=== PATIENT | female | born 1940 | race Caucasian/White ===

== ENCOUNTER 2017-01-12 11:41 | Outpatient (CLI) ==
[2014-03-12 16:14] VITALS: BMI 21.9
[2017-01-12 13:38] LABS: HEMATOCRIT 41.9 % (37.0-47.0); HEMOGLOBIN 13.7 g/dl (12.0-16.0); MEAN CORPUSCULAR HEMOGLOBIN 31.7 pg (27.0-31.0); MEAN CORPUSCULAR HGB CONC 32.7 (31.8-35.4); RED BLOOD COUNT 4.32 10^6/ul (4.20-5.40); WHITE BLOOD COUNT 6.44 K/ul (4.6-10.2)
[2017-01-12 14:32] LABS: ALBUMIN 4.1 g/dL (3.4-5.0); ALBUMIN/GLOBULIN RATIO 1.64; ANION GAP 11.9; BILIRUBIN,TOTAL 0.61 mg/dL (0.00-1.20); BUN/CREATININE RATIO 11.94; CALCIUM 9.3 mg/dL (8.2-10.2); CREATININE 0.67 mg/dL (0.60-1.30); POTASSIUM 3.9 mmol/L (3.5-5.10); TOTAL PROTEIN 6.6 g/dL (5.8-8.1)
== END 2017-01-12 11:42 | disposition home or self-care (01) ==
LOC: LAB 11:41
PROVIDERS: ATTEND General Practice
DX: M33.90 Dermatopolymyositis, unspecified, organ involvement unspecified (principal); I10 Essential (primary) hypertension; E03.9 Hypothyroidism, unspecified; I49.9 Cardiac arrhythmia, unspecified
CPT/HCPCS: 36415; 80053; 85027

== ENCOUNTER 2017-02-08 11:35 | Outpatient (CLI) ==
[2014-03-12 16:14] VITALS: BMI 21.9
[2017-02-08 12:13] LABS: HEMATOCRIT 38.4 % (37.0-47.0); HEMOGLOBIN 12.7 g/dl (12.0-16.0); MEAN CORPUSCULAR HEMOGLOBIN 31.4 pg (27.0-31.0); MEAN CORPUSCULAR HGB CONC 33.1 (31.8-35.4); MEAN CORPUSCULAR VOLUME 94.8 fl (81.0-99.0); PLATELET COUNT 251 10^3/uL (140-440); RED BLOOD COUNT 4.05 10^6/ul (4.20-5.40); WHITE BLOOD COUNT 6.33 K/ul (4.6-10.2)
[2017-02-08 12:53] LABS: ERYTHROCYTE SEDIMENTATION RATE 11 mm/hr (0-20); ESR INTERNAL QC INTERNAL QC VALID
[2017-02-08 13:02] LABS: ALBUMIN 3.9 g/dL (3.4-5.0); ALBUMIN/GLOBULIN RATIO 1.56; ANION GAP 10.5; BILIRUBIN,TOTAL 0.58 mg/dL (0.00-1.20); BUN/CREATININE RATIO 12.85; CALCIUM 9.2 mg/dL (8.2-10.2); CREATININE 0.7 mg/dL (0.60-1.30); POTASSIUM 3.5 mmol/L (3.5-5.10); TOTAL PROTEIN 6.4 g/dL (5.8-8.1)
[2017-02-08 13:12] LABS: CREATINE KINASE MB 5.5 ng/ml (0.0-3.6)
== END 2017-02-08 11:36 | disposition home or self-care (01) ==
LOC: LAB 11:35
PROVIDERS: ATTEND Internal Medicine Rheumatology
DX: M33.19 Other dermatomyositis with other organ involvement (principal)
CPT/HCPCS: 36415; 80053; 82550; 82553; 85027; 85651

== ENCOUNTER 2017-05-11 08:28 | Outpatient (CLI) ==
[2014-03-12 16:14] VITALS: BMI 21.9
[2017-05-11 12:37] LABS: BASOPHILS % (AUTO) 0.4 % (0.0-3.0); EOSINOPHILS # (AUTO) 0.1 K/ul (0.0-0.7); EOSINOPHILS % (AUTO) 2.1 % (0.0-7.0); HEMATOCRIT 41.7 % (37.0-47.0); HEMOGLOBIN 13.7 g/dl (12.0-16.0); IMMATURE GRANULOCYTE % (AUTO) 0.5 % (0.0-5.0); LYMPHOCYTES # (AUTO) 0.8 K/uL (0.60-3.4); LYMPHOCYTES % (AUTO) 13.7 (10.0-50.0); MEAN CORPUSCULAR HEMOGLOBIN 32.1 pg (27.0-31.0); MEAN CORPUSCULAR HGB CONC 32.9 (31.8-35.4); MEAN CORPUSCULAR VOLUME 97.7 fl (81.0-99.0); MONOCYTES # (AUTO) 0.6 K/uL (0.4-2.0); NEUTROPHILS # (AUTO) 4.2 K/ul (2.0-6.9); NEUTROPHILS % (AUTO) 73.3; PLATELET COUNT 265 10^3/uL (140-440); RED BLOOD COUNT 4.27 10^6/ul (4.20-5.40); WHITE BLOOD COUNT 5.69 K/ul (4.6-10.2)
[2017-05-11 12:41] LABS: BILIRUBIN,URINE Negative (NEGATIVE); KETONES,URINE Negative (NEGATIVE); LEUKOCYTE ESTERASE ,URINE 2+ (NEGATIVE); NITRITE,URINE Negative (NEGATIVE); PROTEIN,URINE Negative (NEGATIVE); URINE, BLOOD Trace-intact (NEGATIVE)
[2017-05-11 12:49] LABS: ADD URINE MICROSCOPIC YES; ALBUMIN 3.8 g/dL (3.4-5.0); ALBUMIN/GLOBULIN RATIO 1.46; BILIRUBIN,TOTAL 0.72 mg/dL (0.00-1.20); CHOL/HDL RATIO 3.1 (4.5-5.5); CREATININE 0.75 mg/dL (0.60-1.30); TOTAL PROTEIN 6.4 g/dL (5.8-8.1)
== END 2017-05-11 08:29 | disposition home or self-care (01) ==
LOC: LAB 08:28
PROVIDERS: ATTEND General Practice
DX: E03.9 Hypothyroidism, unspecified (principal); I10 Essential (primary) hypertension; I47.1 Supraventricular tachycardia; M33.90 Dermatopolymyositis, unspecified, organ involvement unspecified; Z79.899 Other long term (current) drug therapy
CPT/HCPCS: 36415; 80053; 80061; 81001; 85025; 87086

== ENCOUNTER 2017-06-19 11:12 | Outpatient (CLI) ==
[2014-03-12 16:14] VITALS: BMI 21.9
[2017-06-19 11:33] LABS: HEMATOCRIT 39.1 % (37.0-47.0); HEMOGLOBIN 13.2 g/dl (12.0-16.0); MEAN CORPUSCULAR HEMOGLOBIN 32.4 pg (27.0-31.0); MEAN CORPUSCULAR HGB CONC 33.8 (31.8-35.4); MEAN CORPUSCULAR VOLUME 95.8 fl (81.0-99.0); PLATELET COUNT 235 10^3/uL (140-440); RED BLOOD COUNT 4.08 10^6/ul (4.20-5.40); WHITE BLOOD COUNT 5.81 K/ul (4.6-10.2)
[2017-06-19 12:10] LABS: ALBUMIN 3.9 g/dL (3.4-5.0); ALBUMIN/GLOBULIN RATIO 1.5; ANION GAP 12.9; BILIRUBIN,TOTAL 0.55 mg/dL (0.00-1.20); BUN/CREATININE RATIO 11.11; CALCIUM 9.5 mg/dL (8.2-10.2); CREATININE 0.72 mg/dL (0.60-1.30); POTASSIUM 3.9 mmol/L (3.5-5.10); TOTAL PROTEIN 6.5 g/dL (5.8-8.1)
[2017-06-19 12:11] LABS: ERYTHROCYTE SEDIMENTATION RATE 8 mm/hr (0-20); ESR INTERNAL QC INTERNAL QC VALID
[2017-06-19 12:22] LABS: CREATINE KINASE MB 2.4 ng/ml (0.0-3.6)
== END 2017-06-19 11:13 | disposition home or self-care (01) ==
LOC: LAB 11:12
PROVIDERS: ATTEND Internal Medicine Rheumatology
DX: M33.19 Other dermatomyositis with other organ involvement (principal)
CPT/HCPCS: 36415; 80053; 82085; 82550; 82553; 85027; 85651

== ENCOUNTER 2017-10-11 12:08 | Outpatient (CLI) ==
[2014-03-12 16:14] VITALS: BMI 21.9
[2017-10-11 12:49] LABS: HEMATOCRIT 38.6 % (37.0-47.0); HEMOGLOBIN 12.7 g/dl (12.0-16.0); MEAN CORPUSCULAR HEMOGLOBIN 31.9 pg (27.0-31.0); MEAN CORPUSCULAR HGB CONC 32.9 (31.8-35.4); PLATELET COUNT 244 10^3/uL (140-440); RED BLOOD COUNT 3.98 10^6/ul (4.20-5.40); WHITE BLOOD COUNT 6.38 K/ul (4.6-10.2)
[2017-10-11 13:18] LABS: ALBUMIN 3.8 g/dL (3.4-5.0); ALBUMIN/GLOBULIN RATIO 1.41; ANION GAP 12.2; BILIRUBIN,TOTAL 0.5 mg/dL (0.00-1.20); BUN/CREATININE RATIO 13.43; CALCIUM 9.2 mg/dL (8.2-10.2); CREATININE 0.67 mg/dL (0.60-1.30); POTASSIUM 3.2 mmol/L (3.5-5.10); TOTAL PROTEIN 6.5 g/dL (5.8-8.1)
[2017-10-11 14:17] LABS: ERYTHROCYTE SEDIMENTATION RATE 6 mm/hr (0-20); ESR INTERNAL QC INTERNAL QC VALID
== END 2017-10-11 12:09 | disposition home or self-care (01) ==
LOC: LAB 12:08
PROVIDERS: ATTEND Internal Medicine Rheumatology
DX: M89.9 Disorder of bone, unspecified (principal); M33.19 Other dermatomyositis with other organ involvement
CPT/HCPCS: 36415; 80053; 82306; 82550; 82553; 85027; 85651

== ENCOUNTER 2017-11-13 12:04 | Outpatient (CLI) ==
[2014-03-12 16:14] VITALS: BMI 21.9
== END 2017-11-13 12:05 | disposition home or self-care (01) ==
LOC: LAB 12:04
PROVIDERS: ATTEND General Practice
DX: E03.9 Hypothyroidism, unspecified (principal); I10 Essential (primary) hypertension; I47.1 Supraventricular tachycardia; M33.90 Dermatopolymyositis, unspecified, organ involvement unspecified; Z79.899 Other long term (current) drug therapy
CPT/HCPCS: 36415; 80053; 80061; 81001; 84443; 85025

== ENCOUNTER 2018-02-16 12:22 | Outpatient (CLI) ==
[2014-03-12 16:14] VITALS: BMI 21.9
== END 2018-02-16 12:23 | disposition home or self-care (01) ==
LOC: LAB 12:22
PROVIDERS: ATTEND Internal Medicine Rheumatology
DX: M33.19 Other dermatomyositis with other organ involvement (principal)
CPT/HCPCS: 36415; 80053; 82550; 82553; 85027; 85651

== ENCOUNTER 2018-03-08 13:00 | Outpatient (CLI) ==
[2014-03-12 16:14] VITALS: BMI 21.9
== END 2018-03-08 13:01 | disposition home or self-care (01) ==
LOC: FCC-LAB 13:00
PROVIDERS: ATTEND General Practice
DX: E03.9 Hypothyroidism, unspecified (principal); I47.1 Supraventricular tachycardia; I10 Essential (primary) hypertension; Z79.899 Other long term (current) drug therapy
CPT/HCPCS: 36415; 80053; 80061; 81001; 85025

== ENCOUNTER 2018-07-09 10:53 | Outpatient (CLI) ==
[2014-03-12 16:14] VITALS: BMI 21.9
== END 2018-07-09 10:54 | disposition home or self-care (01) ==
LOC: FCC-LAB 10:53
PROVIDERS: ATTEND General Practice
DX: E03.9 Hypothyroidism, unspecified (principal); I10 Essential (primary) hypertension; I47.1 Supraventricular tachycardia; E55.9 Vitamin D deficiency, unspecified; Z79.899 Other long term (current) drug therapy
CPT/HCPCS: 36415; 80053; 80061; 81001; 85025

== ENCOUNTER 2018-07-24 11:26 | Outpatient (CLI) ==
[2014-03-12 16:14] VITALS: BMI 21.9
== END 2018-07-24 11:27 | disposition home or self-care (01) ==
LOC: LAB 11:26
PROVIDERS: ATTEND Internal Medicine Rheumatology
DX: M33.19 Other dermatomyositis with other organ involvement (principal)
CPT/HCPCS: 36415; 80053; 82550; 82553; 85027; 85651

== ENCOUNTER 2018-11-01 08:56 | Outpatient (CLI) ==
[2014-03-12 16:14] VITALS: BMI 21.9
== END 2018-11-01 08:57 | disposition home or self-care (01) ==
LOC: RHC-LAB 08:56
PROVIDERS: ATTEND General Practice
DX: E55.9 Vitamin D deficiency, unspecified (principal); I10 Essential (primary) hypertension; E03.9 Hypothyroidism, unspecified; I47.1 Supraventricular tachycardia; Z79.899 Other long term (current) drug therapy
CPT/HCPCS: 36415; 80053; 80061; 81001; 84443; 85025; 87086

== ENCOUNTER 2018-11-20 18:51 | Emergency (ER) ==
[2018-11-20 18:56] VITALS: BP 185/85; TEMP 98.7; BMI 25.7
--- NOTE | 2018-11-20 19:32 | CT ---
EXAM: CT sinuses/facial bones without contrast HISTORY: Nasal deformity post fall COMPARISON: No CT head 03/14/2014 TECHNIQUE: Serial axial images of the facial bones/sinuses were obtained without IV contrast. These were viewed in coronal, sagittal and axial planes. FINDINGS: The nasal bones demonstrate cortical irregularity and angulation most pronounced on the ri ght. The nasal spine is intact. The maxillary sinus and orbital borders are otherwise intact. The mandible is unremarkable. 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 Soft tissues are unr emarkable. The orbital globes and retrobulbar structures are normal. IMPRESSION: 1. Mild cortical irregularity and angulation of the right nasal bones suggestive of fracture. 2. No additional facial bone fracture is identified.
--- NOTE | 2018-11-20 19:33 | ED.PDOC ---
General ED Provider: Dr. REGGIE TAYLOR-ER Chief Complaint: Fall Stated Complaint: i felll and hurt my nose Time Seen by Physician: 19:00 Mode of Arrival: Walk-In Information Source: Patient, Family Exam Limitations: No limitations [facility] T[facility] Documentation Reviewed and Agree: Yes Does patient meet sepsis criteria?: No System Inflammatory Response Syndrome: Not Applicable Sepsis Protocol: For patient's 13 years and over: Temp is 96.8 and below OR 101 and greater Pulse >90 BPM Resp >20/minute Acutely Altered Mental Status Are patient's symptoms suggestive of a new infection, such as: -Pneumonia -Skin, Soft Tissue -Endocarditis -UTI -Bone, Joint Infection -Implantable Device -Acute Abdominal Infection -Wound Infection -Meningitis -Blood Stream Catheter Infection -Unknown Trauma/Injury Complaint Exam - Facial Injury Complaint/Exam Location of Pain: Reports: Nose Mechanism of Injury: Reports: Trauma Onset/Duration: 30 min Symptoms Are: Still present Onset of Pain: Reports: Immediate Initial Severity: Mild Current Severity: Mild Location: Reports: Discrete Character: Reports: Dull, Aching Aggravating: Reports: Movement Associated Signs and Symptoms: Reports: Swelling, Bruising Related Surgical History: Reports: None Facial Findings: Present: Swelling, Ecchymosis, Abrasion Differential Diagnoses: Contusion, Fracture Review of Systems - Review Of Systems Constitutional: Reports: No symptoms Eyes: Reports: No symptoms Ears, Nose, Mouth, Throat: Reports: No symptoms Respiratory: Reports: No symptoms Cardiac: Reports: No symptoms GI: Reports: No symptoms : Reports: No symptoms Musculoskeletal: Reports: No symptoms Skin: Reports: No symptoms Neurological: Reports: No symptoms Endocrine: Reports: No symptoms Hematologic/Lymphatic: Reports: No symptoms All Other Systems: Reviewed and Negative Past Medical History - Past Medical History Previously Healthy: Yes Endocrine: Reports: Unknown Cardiovascular: Reports: Unknown Respiratory: Reports: Unknown Hematological: Reports: Unknown Gastrointestinal: Reports: Unknown Genitourinary: Reports: Unknown Neuro/Psych: Reports: Unknown Musculoskeletal: Reports: Unknown Cancer: Reports: Unknown Last Menstrual Period: none - Surgical History General Surgical History: Reports: Unknown - Family History Family History: Reports: Unknown - Social History Smoking Status: Never smoker Hx Substance Use: No Alcohol Screening: None - Immunizations Tetanus Shot up to Date: Yes Physical Exam - Physical Exam Appearance: Well-appearing, No pain distress, Well-nourished Eyes: KODY, EOMI, Conjunctiva clear ENT: Ears normal, Nose normal (notd abrasion of nasal bridge), Oropharynx normal Neck: Supple Respiratory: Airway patent, Breath sounds clear, Breath sounds equal, Respirations nonlabored Cardiovascular: RRR, Pulses normal, No rub, No murmur GI/: Soft, Nontender, No masses, Bowel sounds normal, No Organomegaly Musculoskeletal: Normal strength, ROM intact, No edema, No calf tenderness Skin: Warm, Dry, Normal color Neurological: Sensation intact, Motor intact, Reflexes intact, Cranial nerves intact, Alert, Oriented Psychiatric: Affect appropriate, Mood appropriate Interpretation - Radiology Interpretation Radiology Interpretation By: Radiologist Radiology Results: Positive Exam Interpreted: CT Scan Critical Care Note - Critical Care Note Total Time (mins): 0 Course - Course Orders, Labs, Meds: Orders Category Date Time Status CT MAXILLOFACIAL W/O CONTRAST Stat RADS 11/20/18 18:59 Completed Vital Signs: Temp Pulse Resp BP Pulse Ox 11/20/18 18:51 98.7 F 84 16 185/85 H 97 Departure - Departure Time of Disposition: 19:34 Disposition: HOME SELF-CARE Discharge Problem: Nasal bone fracture Qualifiers: Encounter type: initial encounter Fracture type: closed Qualified Code(s): S02.2XXA - Fracture of nasal bones, initial encounter for closed fracture Instructions: Nasal Fracture (ED) Condition: Good Pt referred to PMD for follow-up: Yes IPMP verified?: No Additional Instructions: ice...tylenol for pain---contact er tomorrow for referral to DR gomez Allergies/Adverse Reactions: Allergies cephalexin monohydrate [From Keflex] Adverse Reaction (Verified 11/20/18 18:56) Home Medications: Ambulatory Orders Methotrexate Sodium [Methotrexate] 2.5 mg PO 8 tabs per day wkly 08/11/15 Folic Acid 1 mg PO DAILY #1 01/20/17 Prednisone 10 mg PO DAILY #5 07/20/17 Disposition Discussed With: Patient, Family
== END 2018-11-20 19:43 | disposition home or self-care (01) ==
LOC: ED 18:51
DX: S02.2XXA Fracture of nasal bones, initial encounter for closed fracture (principal); W19.XXXA Unspecified fall, initial encounter
CPT/HCPCS: 99282; 99283

== ENCOUNTER 2018-11-27 09:40 | Outpatient (CLI) | END 2018-11-27 09:41 | disposition home or self-care (01) | LOC: LAB 09:40 | PROVIDERS: ATTEND Internal Medicine Rheumatology | DX: M33.19 Other dermatomyositis with other organ involvement (principal) | CPT/HCPCS: 36415; 80053; 82550; 82553; 85027; 85651 ==

== ENCOUNTER 2019-06-27 10:00 | Outpatient (CLI) | END 2019-06-27 10:01 | disposition home or self-care (01) | LOC: LAB 10:00 | PROVIDERS: ATTEND General Practice | DX: M33.90 Dermatopolymyositis, unspecified, organ involvement unspecified (principal); I10 Essential (primary) hypertension; E03.9 Hypothyroidism, unspecified; I47.1 Supraventricular tachycardia; D55.9 Anemia due to enzyme disorder, unspecified; Z79.899 Other long term (current) drug therapy | CPT/HCPCS: 36415; 80053; 80061; 81001; 82550; 82553; 84443; 85025; 85651 ==

== ENCOUNTER 2025-06-09 05:32 | Observation (INO) ==
[2025-06-09 06:38] LABS: IMMATURE GRANULOCYTE # (AUTO) 0.0 (0.0-1.0); IMMATURE GRANULOCYTE % (AUTO) 0.3 % (0.0-5.0); RDW COEFFICIENT OF VARIATION 12.7 % (11.6-14.8)
[2025-06-09] MEDS: PROTONIX IVP ONE (06:42)
[2025-06-09] MEDS: ZOFRAN SDV IVP ONE (06:43)
[2025-06-09] MEDS: LACTATED RINGERS 1,000 ML IV ONE (06:43)
--- NOTE | 2025-06-09 07:04 | ED.PDOC ---
General <SARAI ESTRELLA DO - Last Filed: 06/09/25 07:27> [facility] ED Provider: Dr. SARAI ESTRELLA DO Chief Complaint: Nausea/Vomiting Stated Complaint: 84-year-old white female presents with complaint of vomiting "black stuff". Patient diagnosed about a year ago with metastatic breast cancer. At the time of diagnosis patient reports lymph nodes were positive and she also had lymph nodes in her neck. She opted for no treatment. In the last several months she has had recurrent frequent vomiting episodes but usually just bile. She started vomiting again last night around 1. Family with her states that it was her usual bile looking stuff. However vomiting persisted and caregiver states she noticed some "color to it". Then about 545 patient had an emesis of moderately large volume of black coffee-ground emesis. This was around 545 and they loaded up and came to the emergency room. I got here this morning patient was experiencing nausea and some vomiting. She does not wish any aggressive intervention to be done. She states she came today for some fluids and to see if she can get vomiting under control. She would like a referral to hospice. She denies any recent illness including fevers, chills, headache, runny nose, sore throat, chest pain, cough, chest congestion, shortness of breath, pain on urination, swelling in feet and legs, vision changes, or unilateral weakness. No rashes or sores. Time Seen by Provider: 06/09/25 05:45 Mode of Arrival: Walk-In Information Source: Patient and Family Exam Limitations: No limitations Primary Care Provider: CHRISTIANO JEFFERSON PA-C Nursing and Triage Documentation Reviewed and Agree: Yes Opioid Naive vs. Tolerant Does Patient Take Opioids?: No Is Patient Opioid Naive?: Yes What is Opioid Naive?: *Opioid Naive implies the patient is not already taking opioids or not chronically receiving opioids on a daily basis. *PRN dosing is not "usually" associated with tolerance. *Patients are at higher risk of over-sedation and aspiration. Is Patient Opioid Tolerant?: No What is Opioid Tolerant?: *Opioid Tolerance implies less than the expected response to an opioid. *Acquired tolerance is defined by the patient taking 60mg of oral morphine daily (or equianalgesic dose of another opioid) for 1 week or more. *Often associated with chronic pain. *May take more than usual dose to achieve desired pain control. Review of Systems <SARAI ESTRELLA DO - Last Filed: 06/09/25 07:27> Review Of Systems Constitutional: Denies Chills or Fever Eyes: Denies Vision change Ears, Nose, Mouth, Throat: Denies Ear pain, Nose discharge or Throat pain Respiratory: Denies Cough or Shortness of Breath Cardiac: Denies Chest pain or Edema GI: Reports Difficulty swallowing, Nausea, Poor appetite, Poor fluid intake and Vomiting; Denies Abdominal pain or Diarrhea : Denies Burning or Dysuria Musculoskeletal: Denies Back pain Neurological: Reports Weakness; Denies Headache PFS <SARAI ESTRELLA DO - Last Filed: 06/09/25 07:27> [facility] Medical History Feeding by G-tube History of in 2013 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, unspecified, organ involvement unspecified (ICD-10) Family History Mother Cancer FATHER Heart disease Respiratory failure Social History Smoking and tobacco status: Former smoker Tobacco: How many years used: 5 Passive smoking exposure: No How long ago did patient quit smoking: quit at age 24 approximately Quit status: quit date established Second hand smoke exposure: No Smoking risk assessment performed: Yes Alcohol intake: never Counseling given: No Substance use type: does not use Counseling given: No Sandy/holiness: LATTER-DAY Special sandy needs: No Agree to transfusion: Yes (depend on situation) Adopted: No Caregiver/support person: No Foster care: No Household members: none Housing: house Marital status: W / Lives independently: Yes Number of children: 2 Number of grandchildren: 2 Highest education level completed: high school graduate Financial difficulty paying for basics: not very hard service: No jail: No Current occupational status: retired Current occupational exposures/hazards: No Previous occupational history: homemaker Pets and animals: Yes (2 cats) Leisure activites: other History of recent travel: No Sexually active: No Do you think of yourself as: straight/heterosexual Current gender identity: female Seatbelt use: always Drives intoxicated or rides with intoxicated mobile lounge driver: No Current diet type/program: regular Well-balanced diet: daily Caffeine: No Eating out: rarely or never During the past year weight has: remained stable Water heater temperature set < 120 degrees: Yes Working smoke detector in home: Yes Fire extinguisher in home: Yes Carbon monoxide detector in home: Yes Firearms in home: No What type of physical activity do you participate in?: walking Physical activity functional status: independent ambulation How many days of moderate to strenuous exercise, like a brisk walk, did you do in the last 7 days: 7 Surgical History Hx of appendectomy Z90.49 - Acquired absence of other specified parts of digestive tract (ICD- 10) History of tonsillectomy Z90.89 - Acquired absence of other organs (ICD-10) Female Reproductive History Menstrual Age of Menarche: 14 Hx Hysterectomy: No Hx Tubal Ligation: No Physical Exam <SARAI ESTRELLA DO - Last Filed: 06/09/25 07:27> Physical Exam Appearance: Reports Cachectic and Other (Elderly white female who appears older than stated age. She is alert and oriented in no acute distress. She does however appear acutely and chronically ill.) Ill-appearing: Severe Pain Distress: None Eyes: Reports KODY, EOMI, Conjunctiva clear and Other (Sclera anicteric); Denies Conjunctiva inflammed ENT: Reports Ears normal, Nose normal, Oropharynx normal and Dry mucosa; Denies Rhinorrhea, Erythema or Exudate Neck: Supple Respiratory: Reports Airway patent, Breath sounds clear, Breath sounds equal and Respirations nonlabored; Denies Crackles, Rhonchi, Wheezes or Retractions Cardiovascular: Reports RRR, Pulses normal and No murmur GI/: Reports Soft, Nontender, Bowel sounds hypoactive and Other (Abdomen is slightly protuberant but not obese. Soft nontender) Musculoskeletal: Reports ROM intact, No edema and Other (Generalized weakness but no focal deficits. Formal strength testing not obtained.) Skin: Reports Warm, Dry and Pale Neurological: Reports Motor intact, Reflexes intact, Alert and Other (Generalized weakness no facial asymmetries. Gait not observed.) Psychiatric: Reports Affect appropriate and Mood appropriate Procedures <DENICE CAMACHO DO - Last Filed: 06/09/25 12:47> Additional Procedures Additional Procedures: Other (Paracentesis: After risks and benefits reviewed, and consent obtained from the patient and family, bedside ultrasound was used to locate the optimal place for paracentesis. ) Progress: The right lower quadrant demonstrated the largest margin for risk reduction of the procedure. The area was prepped and draped in a sterile fashion and ultrasound was used with sterile technique to reconfirm the planned approach. 5 cc of 1% lidocaine infiltrated to make a wheal and extend to the peritoneal wall and up to the peritoneal wall. A stab incision with 11 blade was made to pass the paracentesis catheter with trocar. This was done using a tactile approach and double handed approach due to the patient's thin body habitus. After the needle was felt through the peritoneal wall and aspirate was confirmed, the catheter was advanced and trocar removed to minimize risk to other structures. This was hooked up to suction, ultimately removing 2 L of fluid that was clear and yellow in color. Cell count and differential sent and patient tolerated the procedure well stating that she felt improvement in her symptoms. Catheter was removed by me and a adhesive bandage placed. No adverse interval events or changes. Re-Evaluation <DENICE CAMACHO DO - Last Filed: 06/09/25 12:47> Re-Evaluation Additional Comments: 1218: I received signout regarding this patient from the overnight physician. There was imaging pending at that time and a CT with contrast demonstrated ascites fluid that was new in addition to general unchanged pleural fluid. There was compression of the ureters in addition to the known metastatic liver with a spinal compression fracture that may be pathologic. On review of her laboratory workup, although she does not have a leukocytosis, it does appear that she has a right shift. Concern for underlying infection and with the ascites fluid, acute bacterial peritonitis certainly on the differential. Her ascites fluid when I performed a paracentesis, see procedure note, does not appear consistent with bacterial peritonitis. Nonetheless, single dose of antibiotic was given in the emergency department. This was given in full disclosure to the patient and the patient appears to have decision-making capacity, pleasant and well-appearing. She is nontoxic. They wish to pursue hospice care and I have offered admission to help with this process in addition to symptomatic management of her nausea and vomiting that appears to be consistent with hematemesis. Her vitals and H&H are stable in appearance. This said, I have discussed case with hospital service who is gracious to accept the patient on observation for further symptomatic management under the premise of establishing hospice care. <SARAI ESTRELLA DO - Last Filed: 06/09/25 07:27> Physician Progress Note Physician Progress Note: 84-year-old white female presents with complaint of vomiting "black stuff". Patient diagnosed about a year ago with metastatic breast cancer. At the time of diagnosis patient reports lymph nodes were positive and she also had lymph nodes in her neck. She opted for no treatment. In the last several months she has had recurrent frequent vomiting episodes but usually just bile. She started vomiting again last night around 1. Family with her states that it was her usual bile looking stuff. However vomiting persisted and caregiver states she noticed some "color to it". Then about 545 patient had an emesis of moderately large volume of black coffee-ground emesis. Based on history and physical as well as exam, strongly suspect upper GI bleed. Several minutes spent discussing with patient and caregiver regarding her choices. She does not wish aggressive intervention to be done but would like to be able to stop vomiting. She would like to get some IV fluids and be referred to hospice. She denies any pain or any discomfort with the exception of some discomfort substernal when she vomits. Will obtain labs and consider CT to at least assess possibly tumor load and/or stricture. Vomiting has been off and on for quite some time now. No previous GI workup. All EKG and plain radiographs are reviewed viewed and interpreted by this provider independently. CT scans are reviewed and interpreted by radiology. Minors or disabled patients accompanied by guardians have had appropriate consent obtained for testing and treatment. This note is created using voice dictation and may contain spelling and/or contextual grammatical errors related to voice dictation. Care of patient turned over to Dr. Camacho at 07 10 AM at shift change. He will follow-up on labs and CT and discussed with hospitalist for admission for hospice referral. Course <SARAI ESTRELLA, DO - Last Filed: 06/09/25 07:27> Course 06/09/25 06:36 06/09/25 06:51 Orders, Labs, Meds: Lab Review 06/09/25 06/09/25 06/09/25 06:36 06:51 08:58 WBC 12.67 H RBC 4.15 L Hgb 12.3 Hct 38.6 MCV 93.0 MCH 29.6 MCHC 31.9 RDW Coeff of Bharat 12.7 Plt Count 321 Immature Gran % (Auto) 0.3 Neut % (Auto) 85.7 H Lymph % (Auto) 7.8 L Pope % (Auto) 5.8 Eos % (Auto) 0.2 Baso % (Auto) 0.2 Neut # (Auto) 10.9 H Lymph # (Auto) 1.0 Pope # (Auto) 0.7 Eos # (Auto) 0.0 Baso # (Auto) 0.0 Immature Gran # (Auto) 0.0 Sodium 131.0 L Potassium 3.10 L Chloride 94.0 L Carbon Dioxide 30.0 Anion Gap 10.10 BUN 15.0 Creatinine 1.20 Estimated GFR (MDRD) 43.00 BUN/Creatinine Ratio 12.50 Glucose 133.0 H Calcium 10.10 Total Bilirubin 0.70 AST 50.0 H ALT 14.0 Alkaline Phosphatase 104.0 Total Protein 6.30 Albumin 3.10 L Globulin 3.20 Albumin/Globulin Ratio 0.96 Urine Color Soha Urine Clarity Clear Urine pH 5.5 Ur Specific Metaline >=1.030 Urine Protein Trace H Urine Glucose (UA) Negative Urine Ketones Negative Urine Blood Trace-intact H Urine Nitrite Negative Urine Bilirubin 1+ H Urine Urobilinogen 0.2 Ur Leukocyte Esterase Negative Urine Microscopic RBC 2-5 Ur Squamous Epith Cells 5-10 Urine Starch 1+ Urine Mucus 3+ Fluid Source Fluid WBC Fld Total RBCs Counted Fluid Comment 06/09/25 10:59 WBC RBC Hgb Hct MCV MCH MCHC RDW Coeff of Bharat Plt Count Immature Gran % (Auto) Neut % (Auto) Lymph % (Auto) Pope % (Auto) Eos % (Auto) Baso % (Auto) Neut # (Auto) Lymph # (Auto) Pope # (Auto) Eos # (Auto) Baso # (Auto) Immature Gran # (Auto) Sodium Potassium Chloride Carbon Dioxide Anion Gap BUN Creatinine Estimated GFR (MDRD) BUN/Creatinine Ratio Glucose Calcium Total Bilirubin AST ALT Alkaline Phosphatase Total Protein Albumin Globulin Albumin/Globulin Ratio Urine Color Urine Clarity Urine pH Ur Specific Metaline Urine Protein Urine Glucose (UA) Urine Ketones Urine Blood Urine Nitrite Urine Bilirubin Urine Urobilinogen Ur Leukocyte Esterase Urine Microscopic RBC Ur Squamous Epith Cells Urine Starch Urine Mucus Fluid Source Peritoneal fluid Fluid WBC 50 H Fld Total RBCs Counted 1015 H Fluid Comment Orders Category Date Time Status NPO REMINDER: IMAGING ONCE CARE 06/09/25 07:28 Completed ED IV/MEDIPORT/POWERPORT .ONCE EMERGENCY 06/09/25 06:20 Active BODY FLUID CULTURE Stat LAB 06/09/25 10:59 Received CBC W/ AUTO DIFF Stat LAB 06/09/25 06:36 Completed COMPREHENSIVE METABOLIC PANEL Stat LAB 06/09/25 06:51 Completed FLUID CELL COUNT WITH DIFF Stat LAB 06/09/25 10:59 Completed URINALYSIS C & S IF INDICATED Stat LAB 06/09/25 08:58 Completed Iodixanol [Visipaque 320 mg/ml 100Ml] Meds 06/09/25 07:31 Discontinued 100 ml IVP ONCE ONE Ondansetron HCl/Pf [Zofran Sdv] Meds 06/09/25 06:23 Discontinued 4 mg IVP ONCE ONE Ondansetron HCl/Pf [Zofran Sdv] Meds 06/09/25 07:29 Discontinued 4 mg IVP ONCE STA Pantoprazole Sodium [Protonix] Meds 06/09/25 06:20 Discontinued 80 mg IVP ONCE ONE Piperacillin Sodium/Tazobactam [Zosyn 3.375 gm] 3.375 Meds 06/09/25 10:21 Discontinued gm 0.9 % Sodium Chloride [Sodium Chloride 100Ml] 100 ml IV ONCE Ringers Lactated Solution [Lactated Ringers] 1,000 ml Meds 06/09/25 06:[address] ABDOMEN/PELVIS W CONTRAST Stat RADS 06/09/25 07:28 Completed Medications Discontinued Medications Generic Name Dose Route Start Last Admin Trade Name Christiane PRN Reason Stop Dose Admin Lactated Ringer's 1,000 mls @ 1,000 mls/hr 06/09/25 06:20 06/09/25 09:27 Lactated Ringers IV 06/09/25 07:19 Infused BOLUS ONE Infusion Piperacillin Sod/Tazobactam 100 mls @ 200 mls/hr 06/09/25 10:21 06/09/25 11:34 Sod 3.375 gm/ Sodium Chloride IV 06/09/25 10:50 200 mls/hr ONCE ONE Administration Iodixanol 100 ml 06/09/25 07:31 06/09/25 08:25 Iodixanol 320 Mg/Ml 100ml IVP 06/09/25 07:32 100 ml ONCE ONE Administration Ondansetron HCl 4 mg 06/09/25 06:23 06/09/25 06:43 Ondansetron Hcl/Pf 4 Mg/2 Ml Sdv IVP 06/09/25 06:24 4 mg ONCE ONE Administration Ondansetron HCl 4 mg 06/09/25 07:29 06/09/25 07:54 Ondansetron Hcl/Pf 4 Mg/2 Ml Sdv IVP 06/09/25 07:30 4 mg ONCE STA Administration Pantoprazole Sodium 80 mg 06/09/25 06:20 06/09/25 06:42 Pantoprazole Sodium 40 Mg Vial IVP 06/09/25 06:21 80 mg ONCE ONE Administration Vital Signs: Temp Pulse Resp BP Pulse Ox 06/09/25 05:34 97.9 F 94 16 134/91 H 95 <DENICE CAMACHO DO - Last Filed: 06/09/25 12:47> Course Orders, Labs, Meds: Lab Review 06/09/25 06/09/25 06/09/25 06:36 06:51 08:58 WBC 12.67 H RBC 4.15 L Hgb 12.3 Hct 38.6 MCV 93.0 MCH 29.6 MCHC 31.9 RDW Coeff of Bharat 12.7 Plt Count 321 Immature Gran % (Auto) 0.3 Neut % (Auto) 85.7 H Lymph % (Auto) 7.8 L Pope % (Auto) 5.8 Eos % (Auto) 0.2 Baso % (Auto) 0.2 Neut # (Auto) 10.9 H Lymph # (Auto) 1.0 Pope # (Auto) 0.7 Eos # (Auto) 0.0 Baso # (Auto) 0.0 Immature Gran # (Auto) 0.0 Sodium 131.0 L Potassium 3.10 L Chloride 94.0 L Carbon Dioxide 30.0 Anion Gap 10.10 BUN 15.0 Creatinine 1.20 Estimated GFR (MDRD) 43.00 BUN/Creatinine Ratio 12.50 Glucose 133.0 H Calcium 10.10 Total Bilirubin 0.70 AST 50.0 H ALT 14.0 Alkaline Phosphatase 104.0 Total Protein 6.30 Albumin 3.10 L Globulin 3.20 Albumin/Globulin Ratio 0.96 Urine Color Soha Urine Clarity Clear Urine pH 5.5 Ur Specific Metaline >=1.030 Urine Protein Trace H Urine Glucose (UA) Negative Urine Ketones Negative Urine Blood Trace-intact H Urine Nitrite Negative Urine Bilirubin 1+ H Urine Urobilinogen 0.2 Ur Leukocyte Esterase Negative Urine Microscopic RBC 2-5 Ur Squamous Epith Cells 5-10 Urine Starch 1+ Urine Mucus 3+ Fluid Source Fluid WBC Fld Total RBCs Counted Fluid Comment 06/09/25 10:59 WBC RBC Hgb Hct MCV MCH MCHC RDW Coeff of Bharat Plt Count Immature Gran % (Auto) Neut % (Auto) Lymph % (Auto) Pope % (Auto) Eos % (Auto) Baso % (Auto) Neut # (Auto) Lymph # (Auto) Pope # (Auto) Eos # (Auto) Baso # (Auto) Immature Gran # (Auto) Sodium Potassium Chloride Carbon Dioxide Anion Gap BUN Creatinine Estimated GFR (MDRD) BUN/Creatinine Ratio Glucose Calcium Total Bilirubin AST ALT Alkaline Phosphatase Total Protein Albumin Globulin Albumin/Globulin Ratio Urine Color Urine Clarity Urine pH Ur Specific Metaline Urine Protein Urine Glucose (UA) Urine Ketones Urine Blood Urine Nitrite Urine Bilirubin Urine Urobilinogen Ur Leukocyte Esterase Urine Microscopic RBC Ur Squamous Epith Cells Urine Starch Urine Mucus Fluid Source Peritoneal fluid Fluid WBC 50 H Fld Total RBCs Counted 1015 H Fluid Comment Orders Category Date Time Status NPO REMINDER: IMAGING ONCE CARE 06/09/25 07:28 Completed ED IV/MEDIPORT/POWERPORT .ONCE EMERGENCY 06/09/25 06:20 Active BODY FLUID CULTURE Stat LAB 06/09/25 10:59 Received CBC W/ AUTO DIFF Stat LAB 06/09/25 06:36 Completed COMPREHENSIVE METABOLIC PANEL Stat LAB 06/09/25 06:51 Completed FLUID CELL COUNT WITH DIFF Stat LAB 06/09/25 10:59 Completed URINALYSIS C & S IF INDICATED Stat LAB 06/09/25 08:58 Completed Iodixanol [Visipaque 320 mg/ml 100Ml] Meds 06/09/25 07:31 Discontinued 100 ml IVP ONCE ONE Ondansetron HCl/Pf [Zofran Sdv] Meds 06/09/25 06:23 Discontinued 4 mg IVP ONCE ONE Ondansetron HCl/Pf [Zofran Sdv] Meds 06/09/25 07:29 Discontinued 4 mg IVP ONCE STA Pantoprazole Sodium [Protonix] Meds 06/09/25 06:20 Discontinued 80 mg IVP ONCE ONE Piperacillin Sodium/Tazobactam [Zosyn 3.375 gm] 3.375 Meds 06/09/25 10:21 Discontinued gm 0.9 % Sodium Chloride [Sodium Chloride 100Ml] 100 ml IV ONCE Ringers Lactated Solution [Lactated Ringers] 1,000 ml Meds 06/09/25 06:[address] ABDOMEN/PELVIS W CONTRAST Stat RADS 06/09/25 07:28 Completed Medications Discontinued Medications Generic Name Dose Route Start Last Admin Trade Name Freq PRN Reason Stop Dose Admin Lactated Ringer's 1,000 mls @ 1,000 mls/hr 06/09/25 06:20 06/09/25 09:27 Lactated Ringers IV 06/09/25 07:19 Infused BOLUS ONE Infusion Piperacillin Sod/Tazobactam 100 mls @ 200 mls/hr 06/09/25 10:21 06/09/25 11:34 Sod 3.375 gm/ Sodium Chloride IV 06/09/25 10:50 200 mls/hr ONCE ONE Administration Iodixanol 100 ml 06/09/25 07:31 06/09/25 08:25 Iodixanol 320 Mg/Ml 100ml IVP 06/09/25 07:32 100 ml ONCE ONE Administration Ondansetron HCl 4 mg 06/09/25 06:23 06/09/25 06:43 Ondansetron Hcl/Pf 4 Mg/2 Ml Sdv IVP 06/09/25 06:24 4 mg ONCE ONE Administration Ondansetron HCl 4 mg 06/09/25 07:29 06/09/25 07:54 Ondansetron Hcl/Pf 4 Mg/2 Ml Sdv IVP 06/09/25 07:30 4 mg ONCE STA Administration Pantoprazole Sodium 80 mg 06/09/25 06:20 06/09/25 06:42 Pantoprazole Sodium 40 Mg Vial IVP 06/09/25 06:21 80 mg ONCE ONE Administration Vital Signs: Temp Pulse Resp BP Pulse Ox 06/09/25 05:34 97.9 F 94 16 134/91 H 95 Discharge Plan Discharge Patient Disposition: PLACED OBSERVATION Discharge Problem: Acute upper GI bleeding, Abdominal ascites, Compression fracture of body of thoracic vertebra, Metastatic disease, Intractable nausea and vomiting Breast cancer metastasized to multiple sites Qualifiers: Laterality: left Qualified Code(s): C50.912 - Malignant neoplasm of unspecified site of left female breast Did you review [place] [employer] for ALL controlled substances?: Not Applicable ED Provider: SARAI ESTRELLA Condition: Stable
[2025-06-09 07:17] LABS: CREATININE 1.2 mg/dL (0.60-1.30)
[2025-06-09] MEDS: ZOFRAN SDV IVP STA (07:54)
[2025-06-09] MEDS: VISIPAQUE 320 MG/ML 100ML IVP ONE (08:25)
--- NOTE | 2025-06-09 08:58 | CT ---
EXAM: CT ABDOMEN AND PELVIS WITH CONTRAST HISTORY: Acute upper GI bleed. TECHNIQUE: CT acquisition of the abdomen and pelvis from the lower thorax through the pelvis following IV contrast administration. 2-D coronal and sagittal reformatted images were obtained from the axial source images. CT Dose Reduction Techniques Performed: Yes. COMPARISON: Correlation is made with CT chest from 01/03/2025. FINDINGS: Visualized portions of the lower chest included in this examination of the abdomen and pelvis again show bilateral dependent pleural effusions, small on the left, increased in size, and trace on the right, about the same. Mild to moderate dependent atelectasis of both lower lobes, left greater than right. Mild subsegmental atelectasis/focal fibrosis of the lingula, new since the prior study. Calcified granuloma of the left lower lobe, again noted. Stable mild cardiomegaly. 3.8 x 2.6 cm lobulated mass of the left breast laterally, about the same. 1.3 cm vague hypodense mass of the liver left lobe medial segment, apparently new since the prior CT chest. The previously seen mass of the right lobe posterior segment has increased in size. Measures 3.7 cm, increased to 0.1 cm. 0.5 cm low density of the liver right lobe, too small to characterize. 1.4 cm cyst of the right lobe posterior segment medially, stable. The portal veins are patent. No biliary tree dilatation. The gallbladder is present. Gallstones can not be excluded by CT. The pancreas and adrenal glands have a normal appearance. Calcified granuloma of the spleen, again noted. Mild delay in enhancement of the left kidney compared to the right. Bilateral hydronephrosis, moderate to severe on the left and moderate on the right, similar to before. No ureteral stones. Normal distension of the bladder. The uterus and ovaries have a normal appearance. No visible adnexal mass. No evidence of bowel obstruction. No free air. Moderate to large ascites, mildly progressed. Loculation with some mass effect of the ascites in the pelvis, not included in the prior CT chest. Mild anasarca, similar to before. No enlarged lymph nodes are identified. Bone window images again show multiple sclerotic foci and lytic lesions scattered throughout the skeleton. Mild anterior listhesis of L4 on L5 and L5 on S1. Interval development of subacute to chronic moderate to severe T12 compression fracture, with retropulsion, resulting in moderate spinal canal s tenosis. Stable mild chronic compression fracture of the L1 superior endplate. IMPRESSION: 1. Left breast mass, grossly stable, with interval progression of metastatic disease to the liver. 2. 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 3. Moderate to large ascites, progressed, with loculation and some mass effect in the pelvis, not included in the prior CT chest. Consider malignant ascites and peritonitis. 4. Bilateral hydronephrosis, moderate to severe on the left and moderate on the right, similar to before. No ureteral stones, with normal distension of the bladder. The hydronephrosis might be due to obstruction from the loculated ascites. 5. Bilateral dependent pleural effusions, small on the left, increased in size, and trace on the right, about the same. All CT scans are performed using dose optimization techniques as appropriate to the performed exam and include at least one of the following: Automated exposure control, adjustment of the mA and/or kV according to size, and the use of iterative reconstruction technique.
[2025-06-09 09:11] LABS: GLUCOSE, URINE (UA) Negative (NEGATIVE); LEUKOCYTE ESTERASE ,URINE Negative (NEGATIVE); URINE, BLOOD Trace-intact (NEGATIVE)
[2025-06-09 09:16] LABS: STARCH,URINE 1+ (NOT PRESENT)
[2025-06-09] MEDS: ZOSYN 3.375 GM 3.375 GM in SODIUM CHLORIDE 100ML 100 ML IV ONE (11:34)
[2025-06-09 11:54] LABS: FLUID RED CELL COUNT 1015 CELLS/uL (0-5); FLUID WBC COUNT 50 CELLS/uL (0-10)
[2025-06-09 11:56] LABS: BODY FLUID SOURCE PERITONEAL FLUID
--- NOTE | 2025-06-09 13:21 | PCM ---
Date of Service Date Seen by Provider: 06/09/25 Time Seen by Provider: 13:00 Admit Day/Time Admission Date: 06/09/25 Admission Time: 12:52 Reason for Admission Chief Complaint: METASTATIC DISEASE Hospital Provider Hospital Provider: JAZZ DE LUNA PA-C, [facility] [place] Primary Care Physician Primary Care Physician: CHRISTIANO JEFFERSON PA-C History of Present Illness History of Present Illness: Patient is a 84-year-old female from home with metastatic breast cancer who presents for nausea and vomiting. She has a recent history of difficulty keeping medications and food down but over the last 24 hours has had multiple episodes of emesis. She then had a large dark coffee-ground emesis this morning. She has also been having worsening abdominal swelling. Her PCP has been talking to her about hospice but she had not been ready to commit to that yet. In the ER CT of the abdomen and pelvis revealed moderate to large ascites that is having mass effect in the pelvis, her cancer with mets was shown, a T12 compression fracture was noted as well. A therapeutic paracentesis was performed in the ER. She was given antiemetics and is since feeling better. Hospice continues to be brought up. Had a lengthy discussion with the patient, her daughter, and her son. Patient is alert and oriented and able to make decisions for herself at this time. Daughter is her medical POA. She has been declining over the last 2 months per the daughter. She has been having a lot of trouble with acid reflux type symptoms. It has been difficult for her to lie flat to sleep. She does not have a hospital bed at home at this time. She does have a bedside commode. She has been going back and forth between the son and daughters homes, however the daughter has made arrangements for her to have a bedroom in her home expecting her to be there as she continues to decline. We discussed the patient's goals of care. She does not want to be transferred, see specialists, transfusions, or have any procedures done such as an upper endoscopy. We discussed what she would like for us to do if she continues to have bloody vomit. She would just like IV antiemetics and then to keep her comfortable if it were to become eminent. She does not want to be resuscitated. "Let me when it is time". We discussed setting up outpatient hospice for her, which she would like to discuss more with her family. She has concerns about not being able to seek treatment at the hospital if she were to need it. She would like to think on this more. Otherwise it seems that her goals of care would align with hospice if that is what she were to choose. Case Discussed With Case Discussed With: Patient's case was discussed with the ER Physicians, Dr. Lala. 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, unspecified, organ involvement unspecified (ICD-10) Surgical History Hx of appendectomy Z90.49 - Acquired absence of other specified parts of digestive tract (ICD- 10) History of tonsillectomy Z90.89 - Acquired absence of other organs (ICD-10) Family History Mother Cancer FATHER Heart disease Respiratory failure Social History Smoking and tobacco status: Former smoker Tobacco: How many years used: 5 Passive smoking exposure: No How long ago did patient quit smoking: quit at age 24 approximately Quit status: quit date established Second hand smoke exposure: No Smoking risk assessment performed: Yes Alcohol intake: never Counseling given: No Substance use type: does not use Counseling given: No Sandy/lutheran: BAPTIST Special sandy needs: No Agree to transfusion: Yes (depend on situation) Adopted: No Caregiver/support person: No Foster care: No Household members: none Housing: house Marital status: W / Lives independently: Yes Number of children: 2 Number of grandchildren: 2 Highest education level completed: high school graduate Financial difficulty paying for basics: not very hard service: No care home: No Current occupational status: retired Current occupational exposures/hazards: No Previous occupational history: homemaker Pets and animals: Yes (2 cats) Leisure activites: other History of recent travel: No Sexually active: No Do you think of yourself as: straight/heterosexual Current gender identity: female Seatbelt use: always Drives intoxicated or rides with intoxicated tractor trailer driver: No Current diet type/program: regular Well-balanced diet: daily Caffeine: No Eating out: rarely or never During the past year weight has: remained stable Water heater temperature set < 120 degrees: Yes Working smoke detector in home: Yes Fire extinguisher in home: Yes Carbon monoxide detector in home: Yes Firearms in home: No What type of physical activity do you participate in?: walking Physical activity functional status: independent ambulation How many days of moderate to strenuous exercise, like a brisk walk, did you do in the last 7 days: 7 Allergies Allergies Allergy/AdvReac Type Severity Reaction Status Date / Time cephalexin monohydrate (From AdvReac Severe Headache Verified 06/09/25 06:01 Keflex) Cephalexin Monohydrate AdvReac unknown Uncoded 06/09/25 06:01 Current Medications Home Medications Alprazolam (Alprazolam 0.25 Mg Tablet) 0.25 mg PO TID PRN PRN Reason: Anxiety Famotidine (Famotidine 20 Mg Tablet) 20 mg PO BIDAC2 PIETRO Lactated Ringer's (Lactated Ringers) 1,000 mls @ 75 mls/hr IV .[id number] [facility] Last Admin: 06/09/25 14:19 Dose: 75 mls/hr Levothyroxine Sodium (Levothyroxine Sodium 50 Mcg Tablet) 50 mcg PO QDAC2 [facility] Metoclopramide HCl (Metoclopramide Hcl 10 Mg/2 Ml) 5 mg IVP Q6HR PRN PRN Reason: nausea Ondansetron HCl (Ondansetron Hcl/Pf 4 Mg/2 Ml Sdv) 4 mg IVP Q6H PRN PRN Reason: Nausea / Vomiting Pantoprazole Sodium (Pantoprazole Sodium 40 Mg Vial) 40 mg IVP DAILY [facility] Promethazine HCl (Promethazine Hcl 25 Mg Tablet) 12.5 mg PO Q4-6H PRN PRN Reason: Nausea / Vomiting Tramadol HCl (Tramadol Hcl 50 Mg Tablet) 25 mg PO Q4-6H PRN PRN Reason: MODERATE PAIN folic acid 1 mg tablet 1 mg PO DAILY ##1 01/20/17 [History Confirmed 06/09/25] methotrexate sodium 2.5 mg tablet 2.5 mg PO QWEEK 06/25/24 [History Confirmed 06/09/25] glycerin (adult) (Fleet Glycerin (Adult) rectal suppository) 1 supp MD QDAY PRN constipation #12 ea 01/06/25 [Rx Confirmed 06/09/25] alprazolam 0.25 mg tablet 0.25 mg PO TID PRN anxiety #90 tabs 02/21/25 [Rx Confirmed 06/09/25] levothyroxine 50 mcg tablet 50 mcg PO QDAY #90 tabs 02/21/25 [Rx Confirmed 06/09/25] ondansetron 4 mg disintegrating tablet 4 mg PO 3XD PRN nausea and vomiting #90 tabs 02/21/25 [Rx Confirmed 06/09/25] naloxone 4 mg/actuation nasal spray (Narcan) 1 spray intranasal Q2-3M PRN opioid overdose #2 ea 02/22/25 [Rx Confirmed 06/09/25] famotidine 20 mg tablet (Pepcid) 20 mg PO BID #60 tabs 02/25/25 [Rx Confirmed 06/09/25] pantoprazole 40 mg tablet,delayed release 40 mg PO DAILY #90 tabs 02/27/25 [Rx Confirmed 06/09/25] promethazine 6.25 mg/5 mL oral syrup 6.25 mg (5 mL) PO ONCE #473 mL 03/03/25 [Rx Confirmed 06/09/25] potassium chloride 20 mEq tablet,extended release 20 meq PO QDAY #90 tabs 04/15/25 [Rx Confirmed 06/09/25] naloxone 4 mg/actuation nasal spray (Narcan) 1 spray intranasal Q2-3M PRN opioid overdose #2 ea 04/16/25 [Rx Confirmed 06/09/25] promethazine 12.5 mg tablet 12.5 mg PO Q4-6H PRN nausea and vomiting #90 tabs 04/16/25 [Rx Confirmed 06/09/25] tramadol 25 mg tablet 25 mg PO Q4-6H PRN pain #30 tabs 05/06/25 [Rx Confirmed 06/09/25] lisinopril 10 mg-hydrochlorothiazide 12.5 mg tablet 2 tab PO QDAY 06/09/25 [History Confirmed 06/09/25] propranolol 20 mg tablet 20 mg PO DAILY 06/09/25 [History Confirmed 06/09/25] Opioid Naive vs. Tolerant Does Patient Take Opioids?: No Is Patient Opioid Naive?: Yes What is Opioid Naive?: *Opioid Naive implies the patient is not already taking opioids or not chronically receiving opioids on a daily basis. *PRN dosing is not "usually" associated with tolerance. *Patients are at higher risk of over-sedation and aspiration. Is Patient Opioid Tolerant?: No What is Opioid Tolerant?: *Opioid Tolerance implies less than the expected response to an opioid. *Acquired tolerance is defined by the patient taking 60mg of oral morphine daily (or equianalgesic dose of another opioid) for 1 week or more. *Often associated with chronic pain. *May take more than usual dose to achieve desired pain control. Review of Systems Constitutional: Reports Fatigue, Weakness and Loss of appetite; Denies Fever Head: Reports Normocephalic and Atraumatic Cardiovascular: Denies Chest pain, Edema, Palpitations or Syncope Respiratory: Denies Cough or Shortness of air Gastrointestinal: Reports Nausea, Vomiting, Hematemesis, Vomit Coffee Ground Material, Heartburn and Abdominal pain Genitourinary: Denies Dysuria or Frequency Dermatologic: Denies Rashes Neurological: Reports Weakness; Denies Headache, Dizziness or Syncope Physical examination Most Recent Vital Signs: Most Recent Vital Signs Temperature 97.9 F 06/09/25 05:34 Temperature Source Infrared 06/09/25 05:34 Pulse Rate 94 06/09/25 05:34 Respiratory Rate 16 06/09/25 05:34 Blood Pressure 134/91 H 06/09/25 05:34 O2 Sat by Pulse Oximetry 95 06/09/25 05:34 Height 5 ft 2 in 06/09/25 05:34 Weight 43.1 kg 06/09/25 05:34 Telemetry Heart Rate 60 02/21/25 15:16 Telemetry SPO2 97 02/21/25 15:16 Appearance: Positive No Apparent Distress, Alert and Oriented x3, Ill-Appearing, Thin and Cachectic HEENT: Positive Normocephalic and Atraumatic Neck: Positive Supple and Midline Trachea Chest/Lungs: Positive Clear to Auscultation Bilaterally and Rhonci; Negative Rales or Wheezes Heart: Positive RRR GI/: Positive Soft, Nontender, Bowel Sounds Normal and Other (+mildly distended, much improved per patient since paracentesis ) Extremities: Negative Edema Neurological: Positive Cranial Nerves Intact, Alert, Oriented and Other (+generalized weakness, deconditioning ) Psychiatric: Positive Oriented x4, Appropriate Mood and Appropriate Affect Labs This Visit Labs This Visit: Labs This Visit 06/09/25 06/09/25 06/09/25 06:36 06:51 08:58 WBC 12.67 H RBC 4.15 L Hgb 12.3 Hct 38.6 MCV 93.0 MCH 29.6 MCHC 31.9 RDW Coeff of Bharat 12.7 Plt Count 321 Immature Gran % (Auto) 0.3 Neut % (Auto) 85.7 H Lymph % (Auto) 7.8 L Kaufman % (Auto) 5.8 Eos % (Auto) 0.2 Baso % (Auto) 0.2 Neut # (Auto) 10.9 H Lymph # (Auto) 1.0 Kaufman # (Auto) 0.7 Eos # (Auto) 0.0 Baso # (Auto) 0.0 Immature Gran # (Auto) 0.0 Sodium 131.0 L Potassium 3.10 L Chloride 94.0 L Carbon Dioxide 30.0 Anion Gap 10.10 BUN 15.0 Creatinine 1.20 Estimated GFR (MDRD) 43.00 BUN/Creatinine Ratio 12.50 Glucose 133.0 H Calcium 10.10 Total Bilirubin 0.70 AST 50.0 H ALT 14.0 Alkaline Phosphatase 104.0 Total Protein 6.30 Albumin 3.10 L Globulin 3.20 Albumin/Globulin Ratio 0.96 Urine Color Soha Urine Clarity Clear Urine pH 5.5 Ur Specific [place] >=1.030 Urine Protein Trace H Urine Glucose (UA) Negative Urine Ketones Negative Urine Blood Trace-intact H Urine Nitrite Negative Urine Bilirubin 1+ H Urine Urobilinogen 0.2 Ur Leukocyte Esterase Negative Urine Microscopic RBC 2-5 Ur Squamous Epith Cells 5-10 Urine Starch 1+ Urine Mucus 3+ Fluid Source Fluid WBC Fld Total RBCs Counted Fluid Comment 06/09/25 10:59 WBC RBC Hgb Hct MCV MCH MCHC RDW Coeff of Bharat Plt Count Immature Gran % (Auto) Neut % (Auto) Lymph % (Auto) Kaufman % (Auto) Eos % (Auto) Baso % (Auto) Neut # (Auto) Lymph # (Auto) Kaufman # (Auto) Eos # (Auto) Baso # (Auto) Immature Gran # (Auto) Sodium Potassium Chloride Carbon Dioxide Anion Gap BUN Creatinine Estimated GFR (MDRD) BUN/Creatinine Ratio Glucose Calcium Total Bilirubin AST ALT Alkaline Phosphatase Total Protein Albumin Globulin Albumin/Globulin Ratio Urine Color Urine Clarity Urine pH Ur Specific [place] Urine Protein Urine Glucose (UA) Urine Ketones Urine Blood Urine Nitrite Urine Bilirubin Urine Urobilinogen Ur Leukocyte Esterase Urine Microscopic RBC Ur Squamous Epith Cells Urine Starch Urine Mucus Fluid Source Peritoneal fluid Fluid WBC 50 H Fld Total RBCs Counted 1015 H Fluid Comment Imaging Imaging: EXAM: CT ABDOMEN AND PELVIS WITH CONTRAST HISTORY: Acute upper GI bleed. TECHNIQUE: CT acquisition of the abdomen and pelvis from the lower thorax through the pelvis following IV contrast administration. 2-D coronal and sagittal reformatted images were obtained from the axial source images. CT Dose Reduction Techniques Performed: Yes. COMPARISON: Correlation is made with CT chest from 01/03/2025. FINDINGS: Visualized portions of the lower chest included in this examination of the abdomen and pelvis again show bilateral dependent pleural effusions, small on the left, increased in size, and trace on the right, about the same. Mild to moderate dependent atelectasis of both lower lobes, left greater than right. Mild subsegmental atelectasis/focal fibrosis of the lingula, new since the prior study. Calcified granuloma of the left lower lobe, again noted. Stable mild cardiomegaly. 3.8 x 2.6 cm lobulated mass of the left breast laterally, about the same. 1.3 cm vague hypodense mass of the liver left lobe medial segment, apparently new since the prior CT chest. The previously seen mass of the right lobe posterior segment has increased in size. Measures 3.7 cm, increased to 0.1 cm. 0.5 cm low density of the liver right lobe, too small to characterize. 1.4 cm cyst of the right lobe posterior segment medially, stable. The portal veins are patent. No biliary tree dilatation. The gallbladder is present. Gallstones can not be excluded by CT. The pancreas and adrenal glands have a normal appearance. Calcified granuloma of the spleen, again noted. Mild delay in enhancement of the left kidney compared to the right. Bilateral hydronephrosis, moderate to severe on the left and moderate on the right, similar to before. No ureteral stones. Normal distension of the bladder. The uterus and ovaries have a normal appearance. No visible adnexal mass. No evidence of bowel obstruction. No free air. Moderate to large ascites, mildly progressed. Loculation with some mass effect of the ascites in the pelvis, not included in the prior CT chest. Mild anasarca, similar to before. No enlarged lymph nodes are identified. Bone window images again show multiple sclerotic foci and lytic lesions scattered throughout the skeleton. Mild anterior listhesis of L4 on L5 and L5 on S1. Interval development of subacute to chronic moderate to severe T12 compression fracture, with retropulsion, resulting in moderate spinal canal stenosis. Stable mild chronic compression fracture of the L1 superior endplate. IMPRESSION: 1. Left breast mass, grossly stable, with interval progression of metastatic disease to the liver. 2. Stable osseous metastatic disease, but with interval development of subacute to chronic moderate to severe T12 compression fracture, with retropulsion, r esulting in moderate spinal canal stenosis, probably pathologic. 3. Moderate to large ascites, progressed, with loculation and some mass effect in the pelvis, not included in the prior CT chest. Consider malignant ascites and peritonitis. 4. Bilateral hydronephrosis, moderate to severe on the left and moderate on the right, similar to before. No ureteral stones, with normal distension of the b ladder. The hydronephrosis might be due to obstruction from the loculated ascites. 5. Bilateral dependent pleural effusions, small on the left, increased in size, and trace on the right, about the same. Review Statement Review Statement: I have independently reviewed and interpreted the labs/EKGs/imaging that were ordered by the ER provider. I have reviewed all outside records that are available currently in our EMR including imaging/notes/labs from previous visits. Plan Plan: 1. Acute upper GI bleed - Patient declines transfer or transfusion. Wants symptomatic treatment with antiemetics, ordered prn. May try clear liquids this evening if able. Protonix ordered. 2. Worsening ascites in setting of metastatic cancer - Received therapeutic paracentesis of 2L in ER, patient reports her abd pain is improved 3. Metastatic breast cancer - Diagnosed about a year ago with involvement of lymph notes. Did not want to pursue treatment. Recommended hospice at this time, she is discussing with her family. PCP has also recommended hospice in last few visits. 4. Hypertension - Will hold home meds Patient does not wish to be resuscitated. She would like to be made comfortable if she were to decline acutely, have significant hematemesis, etc. She is conflicted on committing to hospice, brings up concerns regarding not being able to seek help at ER if needed. We discussed in depth ways hospice could help in those times as well. She is going to discuss further with her family. Either way, she would like to be discharged tomorrow if she's not having any more vomiting. She does not have a hospital bed, we discussed ordering that for her if she does not go hospice. Patient and family in agreement. Spoke with nursing staff and case management regarding her care plan. DVT Prophylaxis: None Time Spent: Greater than 80 minutes spent with patient, 50% of the time spent with this patient was devoted to counseling and coordination of care. [facility] minutes spent discussing advance care planning. Admit to: Obs Discussed Plan of Care with Dr. Kaden Harris.
[2025-06-09] MEDS ORDERED: ZOFRAN SDV IVP PRN (13:22)
[2025-06-09 14:07] VITALS: BMI 17.6
[2025-06-09] MEDS: LACTATED RINGERS 1,000 ML IV SCH (14:19)
[2025-06-09] MEDS ORDERED: PHENERGAN TAB PO PRN (14:47)
[2025-06-09] MEDS ORDERED: NON-FORMULARY MEDICATION (Tramadol 25 mg tablet) PO PRN (14:47)
[2025-06-09] MEDS ORDERED: XANAX PO PRN (14:47)
[2025-06-09] MEDS ORDERED: ULTRAM PO PRN (14:57)
[2025-06-09] MEDS: PEPCID PO SCH (16:57)
[2025-06-09] MEDS: REGLAN IVP PRN (19:30)
[2025-06-09 21:12] VITALS: RESP 16
[2025-06-10] MEDS: SYNTHROID PO SCH (05:17)
[2025-06-10] MEDS: PROTONIX IVP SCH (08:35)
[2025-06-10 10:29] VITALS: BP 135/76; PULSE 88; TEMP 98.5
--- NOTE | 2025-06-10 12:49 | DCSUM ---
Admission Date Admission Date: 06/09/25 Discharge Date Discharge Date: 06/10/25 Admission Diagnosis Admission Diagnosis: abdominal ascites metastatic breast cancer Discharge Diagnosis Discharge Diagnosis: abdominal ascites metastatic breast cancer Hospital Provider Hospital Provider: Kg Dejesus PA-C, [facility] [place] Primary Care Physician Primary Care Physician: CHRISTIANO JEFFERSON PA-C Summary of History and Physical Summary of History and Physical: 84-year-old female from home with metastatic breast cancer who presents for nausea and vomiting. In the ER she was given antiemetics which controlled her vomiting and had a CT scan showing large volume ascites with mas effect in the pelvis. A therapeutic paracentesis was performed and helped her abdominal pain. Hospital Course Subjective: A very lengthy goals of care discussion was performed with the patient, daughter, and son at bedside and she has opted to forego hospice at this time and instead would like to go home and see how she does prior to consulting hospice. The patient was amendablet to IV antiemetics for comfort. She was noted to have an upper GI bleed in which she did not want transferred or transfused for and tolerated clear liquids. Her home antihypertensive meds were held. Appearance: Pleasant and No Apparent Distress CVS: No Murmur Abdomen: Non-Tender Respiratory: No Dyspnea Extremities: No Edema Vital Signs: Most Recent Vital Signs Temperature 98.5 F 06/10/25 10:00 Temperature Source Temporal Artery Scan 06/10/25 10:00 Temperature Source Infrared 06/09/25 05:34 Pulse Rate 88 06/10/25 10:00 Respiratory Rate 16 06/10/25 10:00 Blood Pressure 135/76 06/10/25 10:00 Blood Pressure Mean 95 06/10/25 10:00 Blood Pressure Left Arm 156/55 06/09/25 13:37 Blood Pressure Location Left Arm 06/10/25 10:00 Blood Pressure Position Supine 06/10/25 10:00 O2 Sat by Pulse Oximetry 95 06/10/25 10:00 Oxygen Delivery Method Room Air 06/10/25 12:00 Height 5 ft 2 in 06/09/25 13:37 Weight 43.6 kg 06/09/25 13:37 Telemetry Heart Rate 60 02/21/25 15:16 Telemetry SPO2 97 02/21/25 15:16 Discharge Instructions Discharge Planning: Discharge Planning > 40 minutes Discharge Medications: Home Medications Alprazolam (Alprazolam 0.25 Mg Tablet) 0.25 mg PO TID PRN PRN Reason: Anxiety Famotidine (Famotidine 20 Mg Tablet) 20 mg PO BIDAC2 [facility] Last Admin: 06/10/25 05:17 Dose: 20 mg Lactated Ringer's (Lactated Ringers) 1,000 mls @ 75 mls/hr IV .[id number] [facility] Last Admin: 06/10/25 02:43 Dose: 75 mls/hr Levothyroxine Sodium (Levothyroxine Sodium 50 Mcg Tablet) 50 mcg PO QDAC2 [facility] Last Admin: 06/10/25 05:17 Dose: 50 mcg Metoclopramide HCl (Metoclopramide Hcl 10 Mg/2 Ml) 5 mg IVP Q6HR PRN PRN Reason: nausea Last Admin: 06/10/25 07:55 Dose: 5 mg Ondansetron HCl (Ondansetron Hcl/Pf 4 Mg/2 Ml Sdv) 4 mg IVP Q6H PRN PRN Reason: Nausea / Vomiting Pantoprazole Sodium (Pantoprazole Sodium 40 Mg Vial) 40 mg IVP DAILY [facility] Last Admin: 06/10/25 08:35 Dose: 40 mg Promethazine HCl (Promethazine Hcl 25 Mg Tablet) 12.5 mg PO Q4-6H PRN PRN Reason: Nausea / Vomiting Tramadol HCl (Tramadol Hcl 50 Mg Tablet) 25 mg PO Q4-6H PRN PRN Reason: MODERATE PAIN Discharge Plan Discharge Discharge Orders: Discharge Patient (ONCE); Ordered 06/10/25 Ordered By: KG DEJESUS Instructions: Lymphadenopathy (GEN), Weakness (DC) Patient Disposition: HOME SELF-CARE Prescriptions: Continued folic acid 1 MG tablet 1 mg PO DAILY Qty: 1 methotrexate sodium 2.5 mg tablet 2.5 mg PO QWEEK Rx Instructions: 5 tablets weekly alprazolam 0.25 mg tablet 0.25 mg PO TID PRN (Reason: anxiety) Qty: 90 0RF levothyroxine 50 mcg tablet 50 mcg PO QDAY Qty: 90 3RF ondansetron 4 mg tablet,disintegrating 4 mg PO 3XD PRN (Reason: nausea and vomiting) Qty: 90 0RF Patient Comments: PT HAD X2 YESTERDAY famotidine [Pepcid] 20 mg tablet 20 mg PO BID Qty: 60 0RF pantoprazole 40 mg tablet,delayed release (DR/EC) 40 mg PO DAILY Qty: 90 0RF promethazine 6.25 mg/5 mL syrup 6.25 mg PO ONCE Qty: 473 0RF Rx Instructions: 5-10mL q 3 hours as needed for nausea potassium chloride 20 mEq tablet extended release 20 meq PO QDAY Qty: 90 0RF Patient Comments: PT STATES HAS ONLY BEEN TAKING 2-3 TIMES PER WEEK tramadol 25 mg tablet 25 mg PO Q4-6H PRN (Reason: pain) Qty: 30 0RF lisinopril-hydrochlorothiazide 10-12.5 mg tablet 2 tab PO QDAY propranolol 20 mg tablet 20 mg PO DAILY glycerin (adult) [Fleet Glycerin (Adult)] Suppository 1 supp [place] QDAY PRN (Reason: constipation) Qty: 12 0RF promethazine 12.5 mg tablet 12.5 mg PO Q4-6H PRN (Reason: nausea and vomiting) Qty: 90 0RF naloxone [Narcan] 4 mg/actuation spray,non-aerosol 1 spray intranasal Q2-3M PRN (Reason: opioid overdose) Qty: 2 0RF Rx Instructions: spray 1 dose into ONE nostril; alternate nostrils w each dose until help arrives naloxone [Narcan] 4 mg/actuation spray,non-aerosol 1 spray intranasal Q2-3M PRN (Reason: opioid overdose) Qty: 2 0RF Rx Instructions: spray 1 dose into ONE nostril; alternate nostrils w each dose until help arrives Did you review [place] [employer] for [place] controlled substances?: Yes Discussed opioids are addictive and Narcan is available by prescription or from pharmacy.: Yes Condition: Stable
== END 2025-06-10 14:16 | disposition home or self-care (01) ==
LOC: ED 05:32 → MEDSURG B 05:32
PROVIDERS: ADMIT Hospitalist; ATTEND Physician Assistant